=== PATIENT | female | born 1975 | race Caucasian/White ===

== ENCOUNTER 2019-05-27 18:31 | Emergency (ER) | payer OTHER ==
[~2019-05-27] VITALS: Ht 172.7 cm; Wt 88.9 kg
[~2019-05-27 18:31] MED LIST: BECL10.6 INH; CITA20TA8 PO; ERGO500013 ORAL; HYDR25TA6 ORAL; LEVO25TA6 ORAL
[2019-05-27 18:49] VITALS: Ht 172.7 cm; Wt 88.9 kg
[2019-05-27] MEDS ORDERED: ONDANSETRON (ODT) 4 MG TAB ODT STA (21:02)
[2019-05-27 21:08] VITALS: BP 118/103; PULSE 78; RESP 18
== END 2019-05-27 21:10 | disposition home or self-care (01) ==
LOC: E/R 18:31
DX: M62.48 Contracture of muscle, other site (principal); R40.2142 Coma scale, eyes open, spontaneous, at arrival to emergency department; R40.2362 Coma scale, best motor response, obeys commands, at arrival to emergency department; R40.2252 Coma scale, best verbal response, oriented, at arrival to emergency department; E03.9 Hypothyroidism, unspecified; J45.909 Unspecified asthma, uncomplicated; R07.9 Chest pain, unspecified; R93.0 Abnormal findings on diagnostic imaging of skull and head, not elsewhere classified
CPT/HCPCS: 36415; 70450; 70496; 70498; 71045; 80048; 80061; 80307; 81003; 82550; 82553; 82962; 83036; 84484; 85025; 85610; 85730; 93005; Z7502; Z7610